=== PATIENT | female | born 1955 | race Caucasian/White ===

== ENCOUNTER → 2016-11-07 | Outpatient (CLI) | payer BC, OTHER ==
--- NOTE | 2016-11-07 14:10 | RADIOLOGY REPORT (SQ) ---
EXAM DESCRIPTION: CHEST PA/LAT COMPLETED DATE/TIME: 11/07/2016 1:51 pm REASON FOR STUDY: FEVER, UNSPECIFIED COMPARISON: None. EXAM PARAMETERS: NUMBER OF VIEWS: two views TECHNIQUE: Digital Frontal and Lateral radiographic views of the chest acquired. RADIATION DOSE: NA LIMITATIONS: none FINDINGS: LUNGS AND PLEURA: There is a 5 cm rounded opacity in the medial right lung base. This nory ears to be posterior on the lateral view. MEDIASTINUM AND HILAR STRUCTURES: No masses or contour abnormalities. HEART AND VASCULAR STRUCTURES: Heart normal size. No evidence for failure. BONES: No acute findings. HARDWARE: None in the chest. OTHER: No other significant finding. IMPRESSION: Right lower lobe opacity. Consolidation versus, more likely, neoplasm. TECHNICAL DOCUMENTATION: JOB ID: [id number] [employer] 100e- All Rights Reserved
== END ==
LOC: RAD 13:38
PROVIDERS: ATTEND Nurse Practitioner Family
DX: R50.9 Fever, unspecified (principal)
CPT/HCPCS: 71020

== ENCOUNTER → 2016-11-09 | Outpatient (CLI) | payer OTHER ==
--- NOTE | 2016-11-09 13:20 | RADIOLOGY REPORT (SQ) ---
EXAM DESCRIPTION: CT CHEST WITH COMPLETED DATE/TIME: 11/09/2016 11:57 am REASON FOR STUDY: ABN CXR R93.8 ABNORMAL FINDINGS ON DIAGNOSTIC IMAGING OF BODY STRUCT COMPARISON: Two-view chest 11/07/2016 TECHNIQUE: CT scan of the chest performed using helical scanning technique with dynamic intravenous contrast injection. Images reviewed with lung, soft tissue and bone windows. Reconstructed coronal and sagittal MPR images reviewed. All images stored on PACS. All CT scanners at this facility use dose modulation, iterative reconstruction, and/or weight based d osing when appropriate to reduce radiation dose to as low as reasonably achievable (ALARA). [facility]: Dose Right [facility]: CareDose [facility]: Dose Right [facility]: Teradose 4D [facility]: Ion Beam Services CONTRAST TYPE AND DOSE: 80mL Isovue 370- low osmolar. RENAL FUNCTION: Creatinine 0.8 RADIATION DOSE: 7.09 mGy. LIMITATIONS: None. FINDINGS: LUNGS AND PLEURA: In the posterior right lower lobe, a 6.3 cm transverse by 5.7 cm AP by 7 cm craniocaudad mass is present, best shown on axial image 78 and coronal image 72. This has a thic k irregular wall, central low attenuation from necrosis, and some adjacent airspace disease in the ri ght posterior costophrenic sulcus. Findings are very worrisome for primary lung tumor with postobstr uctive pneumonia in the posterior right lung base. No right pleural effusion. No other worrisome right or left pulmonary nodules. No pneumothorax. No fluffy alveolar infiltrates worrisome for edema or pneumonia elsewhere. HILAR AND MEDIASTINAL STRUCTURES: A 5.5 cm craniocaudad by 3 cm transverse by 2.4 cm AP mass is prese nt along the right sub- carinal region extending into the inferior right hilum worrisome for adenopat hy. On axial image 23, a 1.6 by 1 cm precarinal lymph node is present HEART AND VASCULAR STRUCTURES: No aneurysm or dissection. No central pulmonary emboli. No pericardi al effusion. 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 HARDWARE: None in the chest. UPPER ABDOMEN: Post gastric sleeve procedure for weight loss, with surgical per along the greater curvature of the stomach. There is postsurgical change at the GE junction likely a Shona fundoplic ation. THYROID AND OTHER SOFT TISSUES: No masses. No adenopathy. BONES: No significant finding. OTHER: Results called to Leola Lazar IMPRESSION: Posterior right lower lobe mass with mediastinal adenopathy worrisome for malignancy. TECHNICAL DOCUMENTATION: JOB ID: [id number] Quality ID # [id number]: Final reports with documentation of one or more dose reduction techniques (e.g., Au tomated exposure control, adjustment of the mA and/or kV according to patient size, use of iterative reconstruction technique) 2010 [employer]- All Rights Reserved
== END ==
LOC: RAD 11:20
PROVIDERS: ATTEND Family Medicine
DX: R93.8 Abnormal findings on diagnostic imaging of other specified body structures (principal)
CPT/HCPCS: 71260; 82565

== ENCOUNTER 2016-11-16 10:13 | Emergency (ER) | payer OTHER ==
--- NOTE | 2016-11-16 10:32 | ER Document Report ---
ED Medical Screen (RME) - General Chief Complaint: Shortness Of Breath Stated Complaint: FEVER,SHORT OF BREATH Time Seen by Provider: 11/16/16 10:26 Mode of Arrival: Ambulatory Information source: Patient Notes: Patient presents to the emergency department for history of pneumonia. She relates that the doctor sent her here requesting for IV antibiotics. No request found. Patient reports she still having a fever, last fever was 101.2 yesterday. No fever today no antipyretic taken. Patient is speaking in a clear voice no shortness of breath. TRAVEL OUTSIDE OF THE [place] IN LAST 30 DAYS: No - Related Data Allergies/Adverse Reactions: No Known Allergies Allergy (Verified 11/16/16 10:16) Past Medical History - Past Medical History Cardiac Medical History: Reports: Hx Hypertension Endocrine Medical History: Reports: Hx Diabetes Mellitus Type 2 Renal/ Medical History: Denies: Hx Peritoneal Dialysis Past Surgical History: Reports: Hx Abdominal Surgery - lap band, Hx Hysterectomy Physical Exam - Vital signs Vitals: Temp Pulse Resp BP Pulse Ox 98.0 F 117 H 17 114/71 97 11/16/16 10:16 11/16/16 10:16 11/16/16 10:16 11/16/16 10:16 11/16/16 10:16 Course - Vital Signs Vital signs: Temp Pulse Resp BP Pulse Ox 98.0 F 117 H 17 114/71 97 11/16/16 10:16 11/16/16 10:16 11/16/16 10:16 11/16/16 10:16 11/16/16 10:16
[2016-11-16 11:24] LABS: ABSOLUTE BASOPHILS # (AUTO) 0.1 10^3/uL (0.0-0.2); ABSOLUTE EOSINOPHILS # (AUTO) 0.3 10^3/uL (0.0-0.6); ABSOLUTE LYMPHOCYTES (AUTO) 1.1 10^3/uL (0.5-4.7); ABSOLUTE MONOCYTES (AUTO) 0.7 10^3/uL (0.1-1.4); ABSOLUTE NEUT (AUTO) 9.4 10^3/uL (1.7-8.2); BASOPHILS % (AUTO) 0.6 % (0-2); EOSINOPHILS % (AUTO) 2.7 % (0-6); HEMATOCRIT 27.8 % (36.0-47.0); HEMOGLOBIN 8.7 g/dL (12.0-15.5); HGB HCT DIFFERENCE -1.7; LYMPHOCYTES % (AUTO) 9.8 % (13-45); MEAN CORPUSCULAR HEMOGLOBIN 25.6 pg (27.0-33.4); MEAN CORPUSCULAR HGB CONC 31.3 g/dL (32.0-36.0); MEAN CORPUSCULAR VOLUME 82 fl (80-97); MONOCYTES % (AUTO) 6.4 % (3-13); RED CELL DISTRIBUTION WIDTH 16.2 % (11.5-14.0); SEGMENTED NEUTROPHILS % (AUTO) 80.5 % (42-78); WHITE BLOOD COUNT 11.7 10^3/uL (4.0-10.5)
[2016-11-16] MEDS ORDERED: LEVOFLOXACIN 500 MG/D5W RTU 100 ML IV ONE (11:26)
--- NOTE | 2016-11-16 11:31 | ER Document Report ---
ED General - General Chief Complaint: Shortness Of Breath Stated Complaint: FEVER,SHORT OF BREATH Time Seen by Provider: 11/16/16 10:26 Mode of Arrival: Ambulatory Information source: Patient Notes: This is a 61-year-old female with a history of hypertension and diabetes who was referred to the ER by her primary care physician (Dr. Madrid) for IV antibiotics Because of the pneumonia. Patient states she started having fevers , nonproductive cough and weakness 2 weeks ago. She states she had a CT scan here 1 week ago which showed "a pneumonia and a mass". Patient was placed on Augmentin and cleared her physician when her symptoms did not improve and she was told to come to the ER. Patient states she still having fevers although she has not had any today. She states she still is weak. She denies any significant shortness of breath. TRAVEL OUTSIDE OF THE [place] IN LAST 30 DAYS: No - HPI Onset: Other - Last month Onset/Duration: Gradual Quality of pain: No pain Severity: None Pain Level: Denies Associated symptoms: Chills, Nonproductive cough, Fever Exacerbated by: Denies Relieved by: Denies Similar symptoms previously: Yes Recently seen / treated by doctor: Yes - Related Data Allergies/Adverse Reactions: No Known Allergies Allergy (Verified 11/16/16 10:16) Past Medical History - General Information source: Patient - Social History Smoking Status: Former Smoker Cigarette use (# per day): Yes - History of smoking 20 years ago Chew tobacco use (# tins/day): No Smoking Education Provided: No Frequency of alcohol use: None Drug Abuse: None Lives with: Alone Family History: None Patient has suicidal ideation: No Patient has homicidal ideation: No - Past Medical History Cardiac Medical History: Reports: Hx Hypertension Endocrine Medical History: Reports: Hx Diabetes Mellitus Type 2 Renal/ Medical History: Denies: Hx Peritoneal Dialysis Past Surgical History: Reports: Hx Abdominal Surgery - lap band, Hx Hysterectomy Review of Systems - Review of Systems Constitutional: Chills, Fever, Weakness EENT: No symptoms reported Cardiovascular: No symptoms reported Respiratory: See HPI Gastrointestinal: No symptoms reported Genitourinary: No symptoms reported Female Genitourinary: No symptoms reported Musculoskeletal: No symptoms reported Skin: No symptoms reported Hematologic/Lymphatic: No symptoms reported Neurological/Psychological: Weakness Physical Exam - Vital signs Vitals: Temp Pulse Resp BP Pulse Ox 98.0 F 117 H 17 114/71 97 11/16/16 10:16 11/16/16 10:16 11/16/16 10:16 11/16/16 10:16 11/16/16 10:16 Notes: GENERAL: A 61-year-old female alert and oriented 3, no acute distress. Patient is afebrile and her oxygen saturation is 97% on room air. HEAD: Atraumatic, normocephalic. EYES: Pupils equal round and reactive to light, extraocular movements intact, sclera anicteric, conjunctiva are normal. ENT: TMs normal, nares patent, oropharynx clear without exudates. Moist mucous membranes. NECK: Normal range of motion, supple without lymphadenopathy or JVD. LUNGS: Breath sounds clear to auscultation bilaterally and equal. No wheezes rales or rhonchi. HEART: Regular rate and rhythm without murmurs, rubs or gallops. ABDOMEN: Soft, normoactive bowel sounds. No tenderness to palpation. No guarding, no rebound. No masses appreciated. EXTREMITIES: Normal range of motion, no pitting or edema. No clubbing or cyanosis. NEUROLOGICAL: Cranial nerves II through XII grossly intact. Normal speech, normal gait. PSYCH: Normal mood, normal affect. SKIN: Warm, Dry, normal turgor, no rashes or lesions noted. Course - Re-evaluation Re-evalutation: 11/16/16 21:19 I reviewed the results of the CAT scan with the patient. She did not realize that she had cancer. I let her know that there were lymph nodes in the mediastinum which were concerning for malignancy. She was told she had a "tumor " but I do not think she had much understanding for this. On physical exam, the patient looks quite good. She is not hypoxic and does not appear to be in respiratory distress. She has been having some fevers and some exertional fatigue which could be from the cancer possibly a pneumonia related to the cancer. In either case, I think she is clinically stable for outpatient follow- up. I discussed case with Dr. Obrien's on-call for oncology. I reviewed the CAT scan with him (we will both able to access the CAT scan and look at the films). The mass looks very amenable to the tissue diagnosis possibly by CT guided biopsy. Dr. Obrien wanted to see the patient in the ER as soon as she is discharged to set it up so that she will go right over to the office upon discharge. Regarding any possible pneumonia, levofloxacin will give a better coverage and I have given her IV dose of levofloxacin in the ER and will discharge her with an oral man for the next 10 days. However clinically I think the patient's symptoms are probably related more to cancer itself. Not had a few conversations with her in order for her to process the information listed above. 1 of the conversations I have had with her, was when her brother and friend were both present at the bedside. They are agreeable to the above plan and they plan on going to Dr. Westbrook office right after discharge - Vital Signs Vital signs: Temp Pulse Resp BP Pulse Ox 98 F 80 16 108/72 99 11/16/16 13:40 11/16/16 13:40 11/16/16 13:40 11/16/16 13:40 11/16/16 13:40 11/16/16 21:19 - Laboratory Result Diagrams: 11/16/16 10:40 11/16/16 10:40 Laboratory results interpreted by me: 11/16/16 11/16/16 10:40 10:40 WBC 11.7 H RBC 3.40 L Hgb 8.7 L Hct 27.8 L MCH 25.6 L MCHC 31.3 L RDW 16.2 H Seg Neutrophils % 80.5 H Lymphocytes % 9.8 L Absolute Neutrophils 9.4 H Potassium 5.4 H Carbon Dioxide 21 L Est GFR (Non-Af Amer) 57 L Glucose 239 H Albumin 3.4 L Discharge - Discharge Clinical Impression: Lung mass Condition: Stable Disposition: HOME, SELF-CARE Additional Instructions: Recommendations: Stop taking the Augmentin. Take levofloxacin daily: Next dose is tomorrow. Go directly to [facility] and oncology: I left the number on the chart: they are expecting you. I have already spoken with Dr. Lamb who is the oncologist and he has already looked at your CAT scan. They are expecting you in the clinic today. Emergency room for shortness of breath, worsening weakness or any concerns or getting worse. Prescriptions: Levofloxacin 500 mg PO DAILY #9 tablet Referrals: JOSE DANIEL OBRIEN MD [ACTIVE STAFF] - 11/16/16 (right after discharge)
[2016-11-16 11:45] LABS: ALANINE AMINOTRANSFERASE 26 U/L (9-52); ALBUMIN 3.4 g/dL (3.5-5.0); ALKALINE PHOSPHATASE 101 U/L (38-126); ANION GAP 15 (5-19); ASPARTATE AMINO TRANSFERASE 30 U/L (14-36); BILIRUBIN,DIRECT 0.4 mg/dL (0.0-0.4); BILIRUBIN,TOTAL 0.4 mg/dL (0.2-1.3); BLOOD UREA NITROGEN 17 mg/dL (7-20); CALCIUM 10.1 mg/dL (8.4-10.2); CARBON DIOXIDE 21 mmol/L (22-30); CHLORIDE 101 mmol/L (98-107); GLUCOSE 239 mg/dL (75-110); POTASSIUM 5.4 mmol/L (3.6-5.0); TOTAL PROTEIN 7.5 g/dL (6.3-8.2)
--- NOTE | 2016-11-16 12:08 | RADIOLOGY REPORT (SQ) ---
EXAM DESCRIPTION: CHEST PA/LAT COMPLETED DATE/TIME: 11/16/2016 11:11 am REASON FOR STUDY: hx pneumonia,fever COMPARISON: 11/07/2016 EXAM PARAMETERS: NUMBER OF VIEWS: two views TECHNIQUE: Digital Frontal and Lateral radiographic views of the chest acquired. RADIATION DOSE: NA LIMITATIONS: none FINDINGS: LUNGS AND PLEURA: There is a 7 cm fairly well-defined area of opacity in the medial corporate legal manager ior right base. There is no improvement in this area since the earlier study. MEDIASTINUM AND HILAR STRUCTURES: No masses or contour abnormalities. HEART AND VASCULAR STRUCTURES: Heart normal size. No evidence for failure. BONES: No acute findings. HARDWARE: None in the chest. OTHER: No other significant finding. IMPRESSION: 7 cm mass in the medial posterior right base. TECHNICAL DOCUMENTATION: JOB ID: [id number] [employer]- All Rights Reserved
[2016-11-16 14:14] VITALS: BP 108/72
== END 2016-11-16 13:40 | disposition home or self-care (01) ==
LOC: ER 10:13
DX: R91.8 Other nonspecific abnormal finding of lung field (principal); R06.02 Shortness of breath; R50.9 Fever, unspecified; R53.1 Weakness; I10 Essential (primary) hypertension; E11.9 Type 2 diabetes mellitus without complications; Z87.891 Personal history of nicotine dependence; Z90.710 Acquired absence of both cervix and uterus
CPT/HCPCS: 99285; 96365; 36415; 87040; 85025; 80053; 71020; J1956

== ENCOUNTER → 2016-11-22 | Outpatient (CLI) | payer OTHER ==
--- NOTE | 2016-11-22 11:14 | RADIOLOGY REPORT (SQ) ---
EXAM DESCRIPTION: MRI HEAD COMBO COMPLETED DATE/TIME: 11/22/2016 10:44 am REASON FOR STUDY: LUNG CA (C34.31) C34.31 MALIGNANT NEOPLASM OF LOWER LOBE, RIGHT BRONCHUS OR L COMPARISON: None. TECHNIQUE: Multiplanar imaging includes noncontrasted T1, T2, FLAIR, Diffusion with ADC map and post gadolinium contrast T1 sequences. Images stored on PACS. CONTRAST TYPE AND DOSE: 15 mL Multihance. RENAL FUNCTION: GFR 57 LIMITATIONS: None. FINDINGS: ANATOMY: No anomalies. Normal vascular flow voids. Pituitary fossa normal. CSF SPACES: Atrophy-induced prominence of CSF spaces and ventricles. CEREBRUM: High-signal intensity lesions scattered throughout the white matter on FLAIR imaging with d istribution suggesting chronic micro-vascular ischemic change. No evidence of hemorrhage, mass, extra axial fluid collection or acute ischemic change. No enhancing lesions. POSTERIOR FOSSA: No signal alteration. No hemorrhage. No edema, masses, or mass effect. Internal joslyn tory canals, cerebello-pontine angles, mastoids normal. No enhancing lesions. ORBITS: No masses. Globes normal. PARANASAL SINUSES: No fluid levels. DIFFUSION: Normal. No evidence of recent infarct. OTHER: No other significant finding. IMPRESSION: No evidence of metastatic disease. TECHNICAL DOCUMENTATION: JOB ID: [id number] [employer]- All Rights Reserved
== END ==
LOC: RAD 08:18
PROVIDERS: ATTEND Internal Medicine
DX: C34.31 Malignant neoplasm of lower lobe, right bronchus or lung (principal)
CPT/HCPCS: 70553; A9577

== ENCOUNTER → 2016-11-24 | Outpatient (CLI) | payer OTHER ==
--- NOTE | 2016-11-27 10:07 | RADIOLOGY REPORT (SQ) ---
EXAM DESCRIPTION: PET CT SKULL/THIGH COMPLETED DATE/TIME: 11/24/2016 2:44 pm REASON FOR STUDY: LUNG CA (C34.31) C34.12 MALIGNANT NEOPLASM OF UPPER LOBE, LEFT BRONCHUS OR HEATH C34 .31 MALIGNANT NEOPLASM OF LOWER LOBE, RIGHT BRONCHUS OR L COMPARISON: CT chest dated 11/09/2016. RADIONUCLIDE AND DOSE: 12.0 mCi F18 FDG The route of agent administration: Intravenous FASTING BLOOD SUGAR: 82 mg/dl CONTRAST TYPE AND DOSE: No CT contrast given. TECHNIQUE: Blood glucose level was verified. Above dose of FDG was injected intravenously. 2-D seg mented attenuation correction images were obtained from the base of the skull to the midthighs. Nonc ontrast CT images were obtained for attenuation correction and fusion with emission images. CT image s were performed without oral or intravenous contrast and are not sensitive for parenchymal lesions. A series of overlapping emission PET images were obtained. Images reviewed and manipulated at indep [employer] work station by the radiologist. Images stored on PACS. LIMITATIONS: None. FINDINGS: HEAD AND NECK: No areas of abnormal metabolic activity in the soft tissues of the head and neck. CHEST: 6.5 cm mass in the right lower lobe with central necrosis. Mean SUV value 9.75. Subcarinal l ymph node measuring 1.6 x 3.6 cm. Mean SUV value 13.22. Precarinal lymph node measuring 1.2 cm. No associated activity on PET imaging. ABDOMEN AND PELVIS: No areas of abnormal metabolic activity in the abdomen or pelvis. Expected physi ologic activity is present in the genitourinary system. There is fairly prominent activity scattered throughout the colon. No definite focal mass on CT images although limited due to lack of oral and intravenous contrast. Activity in the region of the rectum with mean SUV value 6.99. PROXIMAL LOWER EXTREMITIES: No areas of abnormal metabolic activity in the soft tissues of the lower extremities. BONES: No abnormal metabolic activity in the visualized skeleton. ADDITIONAL CT FINDINGS: No additional significant findings on the noncontrast CT images. OTHER: No other significant findings. IMPRESSION: 1. MASS IN THE RIGHT LOWER LOBE DESCRIBED MOST CONSISTENT WITH MALIGNANCY AND CENTRAL NECROSIS. S UBCARINAL LYMPH NODE CONSISTENT WITH METASTASIS. PRECARINAL LYMPH NODE ALSO PRESENT BUT WITH NO ABNO RMAL METABOLIC ACTIVITY. 2. PROMINENT ACTIVITY SCATTERED THROUGHOUT THE COLON AND RECTUM WITH NO DEFINITIVE ABNORMAL FINDINGS ON CT SCAN. PROBABLY DUE TO NORMAL GASTROINTESTINAL PHYSIOLOGIC ACTIVITY. BASED ON CT IMAGING CANNO T COMPLETELY EXCLUDE THE POSSIBILITY OF A COLONIC OR RECTAL LESION. FURTHER EVALUATION WITH COLONOSC OPY OR BARIUM ENEMA MAY BE CONSIDERED TO EXCLUDE UNDERLYING PATHOLOGY. 3. REMAINDER OF THE STUDY IS OTHERWISE UNREMARKABLE. TECHNICAL DOCUMENTATION: JOB ID: [id number] [employer]- All Rights Reserved
== END ==
LOC: RAD 12:25
PROVIDERS: ATTEND Internal Medicine
DX: C34.31 Malignant neoplasm of lower lobe, right bronchus or lung (principal)
CPT/HCPCS: 78815; A9552

== ENCOUNTER → 2016-12-07 | Outpatient (CLI) | payer OTHER | LOC: OD 08:17 | PROVIDERS: ATTEND Internal Medicine | DX: D64.9 Anemia, unspecified (principal) ==

== ENCOUNTER 2016-12-28 09:56 | Day surgery (SDC) | payer OTHER ==
--- NOTE | 2016-12-25 13:06 | EKG REPORT ---
SEVERITY:- BORDERLINE ECG - SINUS RHYTHM BORDERLINE PROLONGED QT INTERVAL : Confirmed by: Mike Thomas MD 25-Dec-2016 13:05:31
[~2016-12-28 09:56] MED LIST: CEFAZOLIN 1 GM/D5W RTU 1 GM/50 ML RTUPB IV PRN; DIAZEPAM 5 MG TABLET PO PRN; LACTATED RINGERS 1000 ML IV PRN; LIDOCAINE 0.5% INJ-PF (5 MG/ML) 50 ML SDV SUBCUT PRN; OXYCODONE-ACETAMINOPHEN 5-325 MG TABLET PO PRN
[2016-12-28] MEDS ORDERED: LIDOCAINE 2% INJ-PF (20 MG/ML) 10 ML AMPUL ONE (10:58)
[2016-12-28] MEDS ORDERED: BUPIVACAINE HCL 0.25 % INJ/PF (2.5 MG/1 ML) 30 ML VIAL ONE (11:11)
[2016-12-28] MEDS ORDERED: LIDOCAINE 0.5% INJ-PF (5 MG/ML) 50 ML SDV ONE (11:12)
[2016-12-28] MEDS ORDERED: BACITRACIN INJ 50,000 UNIT VIAL ONE (11:12)
[2016-12-28] MEDS ORDERED: FENTANYL CITRATE INJ/PF 100 MCG/2 ML AMPUL ONE ×2 (11:43→11:44)
[2016-12-28] MEDS ORDERED: ACETAMINOPHEN 100 ML IV ONE (11:44)
[2016-12-28] MEDS ORDERED: MIDAZOLAM 2 MG/2 ML INJ ONE (11:44)
[2016-12-28] MEDS ORDERED: PROPOFOL INJ 200 MG/20 ML VIAL IV ONE (11:44)
[2016-12-28] MEDS ORDERED: MEPERIDINE HCL/PF INJ 25 MG/1 ML DISP.SYRIN IV PRN ×2 (12:39→12:53)
[2016-12-28] MEDS ORDERED: PROMETHAZINE HCL INJ 25 MG/1 ML VIAL IV PRN ×4 (12:39→12:53)
[2016-12-28] MEDS ORDERED: DIPHENHYDRAMINE HCL 50 MG/ML VIAL IV PRN ×2 (12:39→12:53)
[2016-12-28] MEDS ORDERED: ONDANSETRON HCL INJ/PF 4 MG/2 ML SDV IV PRN (12:39)
[2016-12-28] MEDS ORDERED: MORPHINE SULFATE 10 MG/ML INJ IV PRN ×2 (12:39→12:53)
[2016-12-28] MEDS ORDERED: FENTANYL CITRATE INJ/PF 100 MCG/2 ML AMPUL IV PRN ×6 (12:39→12:53)
[2016-12-28] MEDS ORDERED: OXYCODONE-ACETAMINOPHEN 5-325 MG TABLET PO PRN ×2 (12:53)
--- NOTE | 2016-12-28 12:53 | PDOC DISCHARGE SUMMARY ---
Discharge Summary (SDC) - Discharge Final Diagnosis: #1 squamous cell cancer of lung. 2. Diabetes mellitus. 3. Hypertension. Date of Surgery: 12/28/16 Discharge Date: 12/28/16 Condition: Fair Treatment or Instructions: Discharge home [after recovery per ASU criteria]. Diet,as tolerated, when fully awake advance as tolerated. Activities within moderation encouraged. Follow up in my office by appointment in about [1 week]. Call for appointment. Leave wounds [covered], [keep clean and dry, until office visit in 1 week]. Hold of on school/work [until evaluation in office]. Medications per reconciliation sheet. Percocet for prescription. May shower [in 48 hrs], [try to keep operated area as dry as possible]. Discharge Diet: As Tolerated Respiratory Treatments at Home: Deep Breathing/Coughing Discharge Activity: Activity As Tolerated Report the Following to Your Physician Immediately: Shortness of Breath, Unusual Bleeding
--- NOTE | 2016-12-28 12:56 | Operative Report ---
Operative Report DATE OF SURGERY: 12/28/16 PREOPERATIVE DIAGNOSIS: #1 squamous cell cancer of lung. 2. Diabetes mellitus. 3. Hypertension. POSTOPERATIVE DIAGNOSIS: #1 squamous cell cancer of lung. 2. Diabetes mellitus. 3. Hypertension. OPERATION: 1. Ultrasound evaluation of the right internal jugular vein. 2. Port-A-Cath insertion via real time access under ultrasound guidance of the right internal jugular vein. 3 angiogram and interpretation. SURGEON: ROME PETERSON JAILER/TRAINING OFFICER: None ANESTHESIA: LMAC TISSUE REMOVED OR ALTERED: Not applicable COMPLICATIONS: None ESTIMATED BLOOD LOSS: 5 mL. INTRAOPERATIVE FINDINGS: Of a satisfactory right internal jugular vein, estimated to be 1.2 cm in diameter. Adequate for supporting Port-A-Cath. The position of the port with the catheter tip in the upper right atrium. Easy egress of blood and ingress of heparinized solution. Smooth flow of contrast through the right atrium, ventricle and pulmonary outflow tract, possibly slower than usual. PROCEDURE: After obtaining informed consent, the patient was taken to the [operating room] and positioned supine. The [right] neck and chest were prepared with chlorhexidine and draped out with sterile linen. After the " universal timeout ", in which it was verified that the patient continued to receive antibiotic, the procedure commenced. A steriley sheathed ultrasound probe was used to evaluate the [right] internal jugular vein. Local anesthesia was infiltrated adjacent to the probe. Access into the [right] internal jugular vein was obtained using a micropuncture needle, followed by micropuncture wire and then a micropuncture catheter. This was followed by introduction of a 0.035 guidewire the tip of which was placed down into the inferior vena cava . The port sites was marked , locally anesthetized and incision made. Dissection now proceeded to the deep subcutaneous subcutaneous tissues so that a pocket for the port was made. Meticulous hemostasis was secured and the catheter was tunneled between the 2 incisions. Proximally, the catheter was now positioned using a peel-away sheath. Distally the catheter was tailored to an appropriate length and then mated to the port using the contained fixating device. The port was now placed in the pocket and the catheter optimally positioned. The port was accessed with a Yañez needle and an angiogram done under digital subtraction. The findings as dictated. With adequate and satisfactory positioning, both lumens of the chamber were irrigated with heparinized solution. The wounds were now closed using interrupted 3-0 PDS to the subcutaneous tissues and a continuous subcuticular suture of 4-0 Monocryl to the skin. These are reinforced with Steri-Strips over benzoin and then dressings applied. Time: 0.7 minute. Dose: 9.79 m Gy Contrast: 10 mls. Isovue 300. Copies of the dictated operative report for Dr. Rome Arreguin MD.
--- NOTE | 2016-12-28 15:03 | RADIOLOGY REPORT (SQ) ---
EXAM DESCRIPTION: FLUORO/CV PLACEMENT COMPLETED DATE/TIME: 12/28/2016 1:26 pm REASON FOR STUDY: PORTACATH PLCMT RT SIDE ASSISTED WITH FLUORO IN OR C34.31 MALIGNANT NEOPLASM OF L OWER LOBE, RIGHT BRONCHUS OR L COMPARISON: Two-view chest 11/16/2016 FLUOROSCOPY TIME: 0.7 minutes 5 digital radiographic images saved to PACS. TECHNIQUE: Intra-operative images acquired during surgical procedure to evaluate progress. NUMBER OF IMAGES: 5 digital radiographic images LIMITATIONS: None. FINDINGS: Intra procedural imaging and fluoro during permanent central venous catheter placement by Dr. Arreguin. Please see the operative report for further details IMPRESSION: Intra procedural imaging and fluoro COMMENT: Quality ID [id number]: Final reports for procedures using fluoroscopy that document radiation exp osure indices, or exposure time and number of fluorographic images (if radiation exposure indices are not available) Please consult full operative report of the attending physician for description of the procedure. TECHNICAL DOCUMENTATION: JOB ID: [id number] [employer]- All Rights Reserved
[2016-12-28 15:06] VITALS: BP 104/72
== END 2016-12-28 14:45 | disposition home or self-care (01) ==
LOC: OROUT 09:56
PROVIDERS: ATTEND Surgery
PROC: 05HM33Z Insertion of Infusion Device into Right Internal Jugular Vein, Percutaneous Approach (ICD-10-PCS; principal; 2016-12-28 12:00)
DX: C34.31 Malignant neoplasm of lower lobe, right bronchus or lung (principal); E11.9 Type 2 diabetes mellitus without complications; I10 Essential (primary) hypertension; M19.90 Unspecified osteoarthritis, unspecified site; D64.9 Anemia, unspecified; Z87.891 Personal history of nicotine dependence; Z79.899 Other long term (current) drug therapy; Z79.84 Long term (current) use of oral hypoglycemic drugs
CPT/HCPCS: 36561; 93005; 82962; 77001; 93010; C1752; C1788; Q9967; J2250; J3490 ×3; J0690; J3010; J2704; J1642; J0131; 532

== ENCOUNTER → 2017-02-20 | Outpatient (CLI) | payer OTHER ==
--- NOTE | 2017-02-20 16:23 | RADIOLOGY REPORT (SQ) ---
EXAM DESCRIPTION: CHEST PA/LAT COMPLETED DATE/TIME: 02/20/2017 3:32 pm REASON FOR STUDY: SHORTNESS OF BREATH COMPARISON: 11/16/2016 EXAM PARAMETERS: NUMBER OF VIEWS: two views TECHNIQUE: Digital Frontal and Lateral radiographic views of the chest acquired. RADIATION DOSE: NA LIMITATIONS: none FINDINGS: LUNGS AND PLEURA: There is persistent but improved opacifications in the posterior medial aspect of the right lower lung. There is less the appearance of a mass on the current study. MEDIASTINUM AND HILAR STRUCTURES: No masses or contour abnormalities. HEART AND VASCULAR STRUCTURES: Heart normal size. No evidence for failure. BONES: No acute findings. HARDWARE: Injection port on the right. OTHER: No other significant finding. IMPRESSION: Improving appearance of the medial aspect of the right lower lobe posteriorly. The appe arance suggests improving consolidation. Additional follow-up is recommended after treatment. TECHNICAL DOCUMENTATION: JOB ID: [id number] [employer]- All Rights Reserved
== END ==
LOC: RAD 15:15
PROVIDERS: ATTEND Internal Medicine
DX: R06.02 Shortness of breath (principal)
CPT/HCPCS: 71020

== ENCOUNTER → 2017-02-27 | Outpatient (CLI) | payer OTHER ==
--- NOTE | 2017-02-27 14:42 | RADIOLOGY REPORT (SQ) ---
EXAM DESCRIPTION: T SPINE AP/LAT COMPLETED DATE/TIME: 02/27/2017 2:03 pm REASON FOR STUDY: PAIN COMPARISON: Lumbar spine plain films same date PET-CT 11/24/2016 CT chest 11/09/2016 NUMBER OF VIEWS: Two views. TECHNIQUE: AP and lateral radiographic images acquired of the thoracic spine. LIMITATIONS: None. FINDINGS: MINERALIZATION: Osteoporotic ALIGNMENT: Normal. No scoliosis. VERTEBRAE: No fracture or bone lesion. Maintained height, normal segmentation. DISCS: Very mild disc space loss of height and anterior osteophyte formation from T8-9 through T12-L1 . HARDWARE: None in the spine. Left upper quadrant surgical clips question prior Shona fundoplication . Right permanent central line tip superior vena cava MEDIASTINUM AND SOFT TISSUES: Normal heart size and aortic contour. No soft tissue abnormality. VISUALIZED LUNG RUDD: Clear. OTHER: No other significant finding. IMPRESSION: Osteoporotic. No gross acute fracture. Bone scan may be useful for followup there is a history of trauma TECHNICAL DOCUMENTATION: JOB ID: [id number] [employer]- All Rights Reserved
--- NOTE | 2017-02-27 14:44 | RADIOLOGY REPORT (SQ) ---
EXAM DESCRIPTION: L SPINE WHOLE COMPLETED DATE/TIME: 02/27/2017 2:03 pm REASON FOR STUDY: PAIN COMPARISON: None. NUMBER OF VIEWS: Five views including obliques. TECHNIQUE: AP, lateral, oblique, and sacral radiographic images acquired of the lumbar spine. LIMITATIONS: None. FINDINGS: MINERALIZATION: Osteoporotic SEGMENTATION: Small disc space between the S1 and S2 levels. ALIGNMENT: Normal. VERTEBRAE: Maintained height. No fracture or worrisome bone lesion. DISCS: Disc space loss of height with vertebral body endplate sclerosis at T10-11, T11-12, T12-L1. D isc space loss of height at L3-4 and L5-S1 POSTERIOR ELEMENTS: Facet arthropathy throughout the lumbar spine most pronounced at L4-5 and L5-S1 HARDWARE: Left upper quadrant surgical clips along the stomach PARASPINAL SOFT TISSUES: Normal. PELVIS: Incompletely included in the field of view OTHER: No other significant finding. IMPRESSION: No acute fracture or malalignment. If there is a history of trauma and back pain, consi jeremie bone scan for followup TECHNICAL DOCUMENTATION: JOB ID: [id number] [email or web address]- All Rights Reserved
--- NOTE | 2017-02-27 14:47 | RADIOLOGY REPORT (SQ) ---
EXAM DESCRIPTION: PELVIS AP COMPLETED DATE/TIME: 02/27/2017 2:03 pm REASON FOR STUDY: PAIN COMPARISON: None. NUMBER OF VIEWS: One view TECHNIQUE: AP Pelvis LIMITATIONS: None. FINDINGS: MINERALIZATION: Osteoporotic HIPS: No acute fracture or dislocation. No worrisome bone lesions. PELVIS AND SACRUM: No acute fracture or dislocation. No worrisome bone lesions. PUBIS AND ISCHIUM: No acute fracture. LOWER LUMBAR SPINE: Lower lumbar disc space narrowing and facet arthropathy SOFT TISSUES: No findings. OTHER: No other significant finding. IMPRESSION: No acute fracture. If there is a history of trauma and pain, consider bone scan for [facility] TECHNICAL DOCUMENTATION: JOB ID: [id number] [employer]- All Rights Reserved
--- NOTE | 2017-02-27 16:04 | RADIOLOGY REPORT (SQ) ---
EXAM DESCRIPTION: CTA CHEST COMPLETED DATE/TIME: 02/27/2017 3:41 pm REASON FOR STUDY: SHORTNESS OF BREATH COMPARISON: Or 11/09/2016 TECHNIQUE: CT scan of the chest performed using helical scanning technique with dynamic intravenous contrast injection. Images reviewed with lung, soft tissue and bone windows. Reconstructed coronal and sagittal MPR images reviewed. Additional 3 dimensional post-processing performed to develop Maximal Intensity Projection images (FL P). All images stored on PACS. All CT scanners at this facility use dose modulation, iterative reconstruction, and/or weight based d osing when appropriate to reduce radiation dose to as low as reasonably achievable (ALARA). [facility]: Dose Right [facility]: CareDose [facility]: Dose Right [facility]: Teradose 4D [facility]: [employer] CONTRAST TYPE AND DOSE: contrast/concentration: Isovue 370.00 mg/ml; Total Contrast Delivered: 59.0 ml; Total Saline Delivered: 104.0 ml Contrast bolus optimized for the pulmonary arteries. Not diagnostic for the aorta. RENAL FUNCTION: BUN 13 creatinine 0.6 RADIATION DOSE: Up-to-date CT equipment and radiation dose reduction techniques were employed. CTDIv ol: 7.2 - 11.3 mGy. DLP: 240 mGy-cm. . LIMITATIONS: None. FINDINGS: LUNGS AND PLEURA: Previously described right lower lobe mass has been essentially replaced by segmental consolidation surrounding approximately 2 cm cavitary lesion right lower lobe. There is a right pleural effusion volume estimated 500 cc. No endobronchial lesion identified. Left lung is clear. AORTA AND GREAT VESSELS: No aneurysm. Contrast bolus not optimized for the aorta. HEART: No pericardial effusion. No significant coronary artery calcifications. PULMONARY ARTERIES: No emboli visualized in the main pulmonary arteries or the segmental branches. HILAR AND MEDIASTINAL STRUCTURES: No identified masses or abnormal nodes. HARDWARE: None in the chest. UPPER ABDOMEN: Gastric bypass. THYROID AND OTHER SOFT TISSUES: No masses. No adenopathy. BONES: No acute or significant finding. 3D MIPS: Confirm above findings. OTHER: No other significant finding. IMPRESSION: 1. No PE. 2. Right pleural effusion. Cavitary airspace disease right lower lobe. COMMENT: Quality ID # [id number]: Final reports with documentation of one or more dose reduction techniques (e.g., Automated exposure control, adjustment of the mA and/or kV according to patient size, use of iterative reconstruction technique) TECHNICAL DOCUMENTATION: JOB ID: [id number] [employer]- All Rights Reserved
== END ==
LOC: RAD 13:35
PROVIDERS: ATTEND Internal Medicine
DX: R07.9 Chest pain, unspecified (principal); R06.02 Shortness of breath; J90 Pleural effusion, not elsewhere classified
CPT/HCPCS: 71275; 72070; 72110; 72170

== ENCOUNTER → 2017-03-06 | Outpatient (CLI) | payer OTHER ==
--- NOTE | 2017-03-06 09:02 | WOMENS IMAGING REPORT ---
EXAM DESCRIPTION: BONE DENSITY HIP/SPINE COMPLETED DATE/TIME: 03/06/2017 8:23 am REASON FOR STUDY: AGE-RELATED OSTEOPOROSIS; M81.0 M81.0 AGE-RELATED OSTEOPOROSIS W/O CURRENT PATHOL OGICAL FRAC COMPARISON: None. TECHNIQUE: Dual-Energy X-ray Absorptiometry (DEXA) of the AP Spine and Hip. LIMITATIONS: None. FINDINGS: LUMBAR SPINE: The bone mineral density (BMD) measured from L1-L4 in the AP projection correlates with a T-score of -0.4, which is normal as defined by the World Health Organization. HIP: The bone mineral density (BMD) measured in the left hip correlates with a T-score of 0.0, which is no rmal as defined by the World Health Organization. IMPRESSION: 1. LUMBAR SPINE: NORMAL. 2. HIP: NORMAL. COMMENT: The World Health Organization defines low BMD as follows: T-score: Normal: Greater than -1.0 Osteopenia: Between -1.0 and -2.5 Osteoporosis: Less than -2.5 without fractures Established osteoporosis: Less than -2.5 with fractures In general, you may wish to consider: Diagnosis Treatment Follow-up DEXA Normal BMD Prevention 2-3 years Osteopenia Prevention/Therapy 1-2 years Osteoporosis Therapy Yearly TECHNICAL DOCUMENTATION: JOB ID: [id number]- All Rights Reserved
== END ==
LOC: WI 08:09
PROVIDERS: ATTEND Internal Medicine
DX: M81.0 Age-related osteoporosis without current pathological fracture (principal)
CPT/HCPCS: 77080

== ENCOUNTER 2017-03-07 11:03 | Day surgery (SDC) | payer OTHER ==
[2017-03-07 11:55] LABS: HEMATOCRIT 26.9 % (36.0-47.0); HGB HCT DIFFERENCE 0.1; MEAN CORPUSCULAR HEMOGLOBIN 30.3 pg (27.0-33.4); MEAN CORPUSCULAR HGB CONC 33.3 g/dL (32.0-36.0); MEAN CORPUSCULAR VOLUME 91 fl (80-97); RED BLOOD COUNT 2.96 10^6/uL (3.72-5.28); RED CELL DISTRIBUTION WIDTH 18.2 % (11.5-14.0); WHITE BLOOD COUNT 8.2 10^3/uL (4.0-10.5)
[2017-03-07 12:00] LABS: PROTHROMBIN TIME 15.3 SEC (11.4-15.4)
[2017-03-07 12:01] LABS: PARTIAL THROMBOPLASTIN TIME 55.1 SEC (23.5-35.8)
[2017-03-07 12:08] LABS: BLOOD UREA NITROGEN 11 mg/dL (7-20); CREATININE RESULT 0.59 mg/dL (0.52-1.25)
[2017-03-07 15:04] LABS: FLUID APPEARANCE CLOUDY; FLUID TYPE PLEURAL
[2017-03-07 15:05] LABS: FLUID RBC AVERAGE 246.5; FLUID RBC SIDE 1 252; FLUID RBC SIDE 2 241
[2017-03-07 15:06] LABS: FLUID RBC DILUENT USED SALINE; FLUID RBC DILUTION FACTOR 10; TOTAL RBC SQUARES COUNTED FLD 25
--- NOTE | 2017-03-07 15:28 | RADIOLOGY REPORT (SQ) ---
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 PROCEDURE: Procedure, risks, benefit, and alternative explained to patient who then gave written con sent. The posterior right chest wall was marked using ultrasound guidance. A time-out was called fo r correct marking verification. Chest prepped and draped using sterile technique. Local anesthesia a chieved using 5 ml of 1% lidocaine injection. A 5fr needle/catheter set was introduced into the post erior right pleural space. Fluid was aspirated. The catheter was removed and the entry site was cov ered with sterile bandage. No immediate complications noted. Images acquired during the procedure were stored on PACS. FINDINGS: ENTRY SITE: Posterior right pleural space FLUID VOLUME: 10 mL of serosanguineous fluid FLUID ANALYSIS: Sent for culture, cell count, LDH. Specimen was too small to send for cytology OTHER: No immediate postprocedure complication IMPRESSION: SUCCESSFUL THORACENTESIS USING ULTRASOUND GUIDANCE. COMMENT: Patient medication list reviewed: Yes- Quality ID# 130:Eligible professional attests to doc umenting in the medical record they obtained, updated, or reviewed the patient's current medications. Quality ID #145: Final reports for procedures using fluoroscopy that document radiation exposure alannah rubin, or exposure time and number of fluorographic images (if radiation exposure indices are not avail able) TECHNICAL DOCUMENTATION: JOB ID: [id number] [employer]- All Rights Reserved
--- NOTE | 2017-03-07 15:48 | RADIOLOGY REPORT (SQ) ---
EXAM DESCRIPTION: CHEST SINGLE VIEW COMPLETED DATE/TIME: 03/07/2017 3:08 pm REASON FOR STUDY: S/P RT THORACENTESIS COMPARISON: Two-view chest 02/20/2017 CT angio chest 02/27/2017 Thoracentesis earlier today EXAM PARAMETERS: NUMBER OF VIEWS: One view. TECHNIQUE: Single frontal radiographic view of the chest acquired. RADIATION DOSE: NA LIMITATIONS: None. FINDINGS: LUNGS AND PLEURA: No pneumothorax post right thoracentesis. There is persistent airspace disease in the medial right posterior lung base, similar compared to 02/20. No residual right pleural effusion. Left hemithorax unremarkable. MEDIASTINUM AND HILAR STRUCTURES: No masses. Contour normal. HEART AND VASCULAR STRUCTURES: Heart normal in size. Normal vasculature. BONES: No acute findings. HARDWARE: Right jugular central line tip superior vena cava. OTHER: No other significant finding. IMPRESSION: No pneumothorax post right thoracentesis. TECHNICAL DOCUMENTATION: JOB ID: [id number]
--- NOTE | 2017-03-07 16:44 | RADIOLOGY REPORT (SQ) ---
EXAM DESCRIPTION: CHEST SINGLE VIEW COMPLETED DATE/TIME: 03/07/2017 4:34 pm REASON FOR STUDY: 2 HOURS S/P RT THORACENTESIS COMPARISON: 03/15/2017, 1420 hours EXAM PARAMETERS: NUMBER OF VIEWS: One view. TECHNIQUE: Single frontal radiographic view of the chest acquired. RADIATION DOSE: NA LIMITATIONS: None. FINDINGS: LUNGS AND PLEURA: No pneumothorax 2 hours post right thoracentesis. Persistent mild right basilar airspace disease. No pleural effusion. Left lung clear. MEDIASTINUM AND HILAR STRUCTURES: No masses. Contour normal. HEART AND VASCULAR STRUCTURES: Heart normal in size. Normal vasculature. BONES: No acute findings. HARDWARE: Right-sided jugular central line tip superior vena cava OTHER: No other significant finding. IMPRESSION: No pneumothorax 2 hours post right-sided thoracentesis TECHNICAL DOCUMENTATION: JOB ID: [id number]
[2017-03-07 16:57] VITALS: BP 139/86
== END 2017-03-07 17:00 | disposition home or self-care (01) ==
LOC: RAD 11:03
PROVIDERS: ATTEND Internal Medicine
PROC: 0W993ZZ Drainage of Right Pleural Cavity, Percutaneous Approach (ICD-10-PCS; principal; 2017-03-07)
DX: J91.0 Malignant pleural effusion (principal); C34.31 Malignant neoplasm of lower lobe, right bronchus or lung
CPT/HCPCS: 32555; 36415; 71010; 82565; 82962; 83615; 84520; 85027; 85610; 85730; 87070; 87075; 87205; 88305; 89050

== ENCOUNTER → 2017-06-05 | Outpatient (CLI) | payer OTHER ==
--- NOTE | 2017-06-05 09:32 | RADIOLOGY REPORT (SQ) ---
EXAM DESCRIPTION: CT CHEST WITH; CT ABD/PELVIS WITH IV ONLY COMPLETED DATE/TIME: 06/05/2017 8:34 am REASON FOR STUDY: LUNG CA C34.31 MALIGNANT NEOPLASM OF LOWER LOBE, RIGHT BRONCHUS OR L COMPARISON: CT angio chest 02/27/2017 PET-CT 11/24/2016 CT chest 11/09/2016 CT abdomen pelvis 02/22/2012 TECHNIQUE: CT scan of the chest performed using helical scanning technique with dynamic intravenous contrast injection. Images reviewed with lung, soft tissue and bone windows. Reconstructed coronal and sagittal MPR images reviewed. All images stored on PACS. All CT scanners at this facility use dose modulation, iterative reconstruction, and/or weight based d osing when appropriate to reduce radiation dose to as low as reasonably achievable (ALARA). [facility]: Dose Right [facility]: CareDose [facility]: Dose Right [facility]: Teradose 4D [facility]: [place] [employer] CONTRAST TYPE AND DOSE: contrast/concentration: Isovue 370.00 mg/ml; Total Contrast Delivered: 66.0 ml; Total Saline Delivered: 65.0 ml RENAL FUNCTION: Creatinine 0.7 RADIATION DOSE: CT Rad equipment meets quality standard of care and radiation dose reduction techniq ues were employed. CTDIvol: 4.5 - 6.3 mGy. DLP: 810 mGy-cm. . LIMITATIONS: None. FINDINGS: LUNGS AND PLEURA: There is dense consolidation in the right lower lobe posteriorly on axia l image 74, measuring about 3 cm in greatest diameter. This is the area of prior discrete mass seen on 11/24/2016. On today's study, there are air bronchograms in this area and a discrete mass is diffic ult to measure. There is trace right pleural fluid or pleural thickening. Left hemithorax unremarkable. Airways are widely patent. No pneumothorax. HILAR AND MEDIASTINAL STRUCTURES: There is a sub- carinal lymph node 1.4 x 1 cm on today's study (was 2.8 x 2.2 cm on PET-CT 11/24/2016). Aberrant right subclavian artery, an anatomic variant HEART AND VASCULAR STRUCTURES: No aneurysm or dissection. No central pulmonary emboli. No pericardi al effusion. HARDWARE: Right-sided permanent central line tip superior vena cava. Gastric sleeve has been perform ed with multiple surgical per along the greater curvature of the stomach UPPER ABDOMEN: As above. THYROID AND OTHER SOFT TISSUES: No masses. No adenopathy. BONES: No significant finding. OTHER: No other significant finding. IMPRESSION: Decrease in size of sub- carinal lymph nodes compared to PET-CT 11/24/2016 Discrete mass in the right lower lobe is no longer seen. In area wedge shaped consolidation with air bronchograms is present on today's study, about 3 cm in diameter TECHNICAL DOCUMENTATION: JOB ID: [id number] Quality ID # 436: Final reports with documentation of one or more dose reduction techniques (e.g., Au tomated exposure control, adjustment of the mA and/or kV according to patient size, use of iterative reconstruction technique) 2010 [employer]- All Rights Reserved
== END ==
LOC: RAD 08:04
PROVIDERS: ATTEND Internal Medicine
DX: C34.31 Malignant neoplasm of lower lobe, right bronchus or lung (principal)
CPT/HCPCS: 71260; 74177; 82565

== ENCOUNTER → 2017-09-03 | Outpatient (CLI) | payer OTHER ==
--- NOTE | 2017-09-03 11:37 | RADIOLOGY REPORT (SQ) ---
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 Images reviewed with lung, soft tissue and bone windows. Reconstructed coronal and sagittal MPR images reviewed. All images stored on PACS. All CT scanners at this facility use dose modulation, iterative reconstruction, and/or weight based d osing when appropriate to reduce radiation dose to as low as reasonably achievable (ALARA). [facility]: Dose Right [facility]: CareDose [facility]: Dose Right [facility]: Teradose 4D [facility]: [employer] CONTRAST TYPE AND DOSE: 67 cc Isovue 370 RENAL FUNCTION: Creatinine 0.9 RADIATION DOSE: Total exam DLP: 527.62. LIMITATIONS: None. FINDINGS: LUNGS AND PLEURA: Continued interval decrease in size of the mass-like consolidation with associated air bronchograms, extending to the pleural surface in the right lower lobe, since the logan or study dated 06/05/2017. On the prior examination, it measured approximately 3.0 cm in diameter, c ompared to approximately 2.6 cm on the current study. The left lung is stable in appearance. The sma ll right pleural effusion has decreased in size. No pneumothorax. HILAR AND MEDIASTINAL STRUCTURES: Stable appearing mildly prominent subcarinal lymph nodes. HEART AND VASCULAR STRUCTURES: Aberrant right subclavian artery, normal anatomic variant. No aneury sm or dissection. No central pulmonary emboli. No pericardial effusion. HARDWARE: Right Meecuh-W-Buza catheter, unchanged finding. UPPER ABDOMEN: No significant findings. Limited exam. THYROID AND OTHER SOFT TISSUES: No masses. No adenopathy. BONES: The osseous structures are stable in appearance. OTHER: No other significant finding. IMPRESSION: 1 Since the prior examination dated 06/05/2017, continued interval decrease in size of t he right lower lobe mass-like consolidation. 2. No significant interval change in the appearance of the mildly prominent sub-carinal lymph nodes. TECHNICAL DOCUMENTATION: JOB ID: [id number] Quality ID # 436: Final reports with documentation of one or more dose reduction techniques (e.g., Au tomated exposure control, adjustment of the mA and/or kV according to patient size, use of iterative reconstruction technique) 2010 [employer]- All Rights Reserved Reading location - IP/workstation name: [email or web address]
--- NOTE | 2017-09-03 15:05 | RADIOLOGY REPORT (SQ) ---
EXAM DESCRIPTION: CT ABDOMEN IV CONTRAST ONLY COMPLETED DATE/TIME: 09/03/2017 11:07 am REASON FOR STUDY: MAL FERMIN PF LOWER LOBE, RIGHT BRONCHUS OR LUNG C34.31 MALIGNANT NEOPLASM OF LOWER LOBE, RIGHT BRONCHUS OR L COMPARISON: 06/05/2017 TECHNIQUE: CT scan of the abdomen performed with intravenous and without oral contrast using helical scanning technique with dynamic intravenous contrast injection. Images reviewed with lung, soft tiss ue, and bone windows. Reconstructed coronal and sagittal MPR images reviewed. Delayed images for eval uation of the urinary system also acquired and evaluated. All images stored on PACS. All CT scanners at this facility use dose modulation, iterative reconstruc tion, and/or weight based dosing when appropriate to reduce radiation dose to as low as reasonably ac hievable (ALARA). [facility]: Dose Right [facility]: CareDose [facility]: Dose Right [facility]: Teradose 4D [facility]: [employer] CONTRAST TYPE AND DOSE: contrast/concentration: Isovue 370.00 mg/ml; Total Contrast Delivered: 67.0 ml; Total Saline Delivered: 65.0 ml RENAL FUNCTION: Creatinine-- 0.9 RADIATION DOSE: CT Rad equipment meets quality standard of care and radiation dose reduction [employer] ues were employed. CTDIvol: 4.4 - 5.7 mGy. DLP: 528 mGy-cm. . LIMITATIONS: None. FINDINGS: LOWER CHEST: Please see CT chest report. LIVER: Normal size. No masses. No dilated ducts. The hepatic and portal veins are patent. SPLEEN: Normal size. No focal lesions. PANCREAS: The pancreas is atrophic in appearance, stable finding. No masses. No significant calcifi cations. No adjacent inflammation or peripancreatic fluid collections. Pancreatic duct not dilated. GALLBLADDER: No identified stones by CT criteria. No inflammatory changes to suggest cholecystitis. ADRENAL GLANDS: No significant masses or asymmetry. RIGHT KIDNEY AND URETER: No solid masses. No significant calcifications. No hydronephrosis or hyd roureter. LEFT KIDNEY AND URETER: No solid masses. No significant calcifications. No hydronephrosis or hydr oureter. AORTA AND VESSELS: Atherosclerotic changes involving the abdominal aorta. No aneurysm. No dissectio n. Renal arteries, SMA, celiac without stenosis. RETROPERITONEUM: No retroperitoneal adenopathy, hemorrhage or masses. BOWEL AND PERITONEAL CAVITY: Prior gastric bypass procedure. No masses or inflammatory changes. No free fluid or peritoneal masses. APPENDIX: Not visualized. Normal. ABDOMINAL WALL: Small fat containing umbilical hernia. BONES: The osseous structures are stable in appearance. OTHER: No other significant finding. IMPRESSION: 1 No significant interval changes since the prior examination dated 06/05/2017. TECHNICAL DOCUMENTATION: JOB ID: [id number] Quality ID # 436: Final reports with documentation of one or more dose reduction techniques (e.g., Au tomated exposure control, adjustment of the mA and/or kV according to patient size, use of iterative reconstruction technique) 2010 [employer]- All Rights Reserved Reading location - IP/workstation name: [email or web address]
== END ==
LOC: RAD 10:12
PROVIDERS: ATTEND Internal Medicine
DX: C34.31 Malignant neoplasm of lower lobe, right bronchus or lung (principal)
CPT/HCPCS: 71260; 74160; 82565

== ENCOUNTER → 2017-10-04 | Outpatient (CLI) | payer OTHER ==
--- NOTE | 2017-10-04 14:00 | RADIOLOGY REPORT (SQ) ---
EXAM DESCRIPTION: CHEST 2 VIEWS COMPLETED DATE/TIME: 10/04/2017 11:32 am REASON FOR STUDY: COUGH COMPARISON: Chest x-ray dated 02/20/2017. Chest CT days seen. EXAM PARAMETERS: NUMBER OF VIEWS: two views TECHNIQUE: Digital Frontal and Lateral radiographic views of the chest acquired. RADIATION DOSE: NA LIMITATIONS: none FINDINGS: LUNGS AND PLEURA: Persistent streaky density in the right lung base similar to previous ch est x-ray and CT. Left lung clear. MEDIASTINUM AND HILAR STRUCTURES: No masses or contour abnormalities. HEART AND VASCULAR STRUCTURES: Heart normal size. No evidence for failure. BONES: No acute findings. HARDWARE: Vascular access port. OTHER: No other significant finding. IMPRESSION: NO CHANGE IN APPEARANCE OF THE CHEST. PERSISTENT STREAKY DENSITY IN THE RIGHT LUNG BASE . TECHNICAL DOCUMENTATION: JOB ID: [id number] [employer]- All Rights Reserved Reading location - IP/workstation name: [email or web address]
--- NOTE | 2017-10-04 14:05 | RADIOLOGY REPORT (SQ) ---
EXAM DESCRIPTION: T SPINE AP/LAT COMPLETED DATE/TIME: 10/04/2017 11:32 am REASON FOR STUDY: ACUTE MIDLINE BACK PAIN R05 COUGH M54.6 PAIN IN THORACIC SPINE COMPARISON: CT chest dated 09/03/2017 and 06/05/2017. NUMBER OF VIEWS: Two views. TECHNIQUE: AP and lateral radiographic images acquired of the thoracic spine. LIMITATIONS: None. FINDINGS: MINERALIZATION: Normal. ALIGNMENT: Normal. No scoliosis. VERTEBRAE: Mild wedge deformity involving the superior endplate of T 6. Remainder of the thoracic ve rtebrae are intact. DISCS: Mild disc space narrowing with osteophytes. HARDWARE: None in the spine. MEDIASTINUM AND SOFT TISSUES: Normal heart size and aortic contour. No soft tissue abnormality. VISUALIZED LUNG RUDD: Clear. OTHER: No other significant finding. IMPRESSION: DEGENERATIVE CHANGES. MILD WEDGE DEFORMITY OF THE SUPERIOR ENDPLATE OF T6. THIS WAS AL SO PRESENT ON PRIOR CT DATED 09/03/2017 BUT NOT PRESENT IN MAY 2017. NO OTHER SIGNIFICANT FINDIN GS. TECHNICAL DOCUMENTATION: JOB ID: [id number] [employer]- All Rights Reserved Reading location - IP/workstation name: [email or web address]
== END ==
LOC: RAD 11:01
PROVIDERS: ATTEND Family Medicine
DX: M54.6 Pain in thoracic spine (principal); R05 Cough
CPT/HCPCS: 71046; 72070

== ENCOUNTER → 2017-12-07 | Outpatient (CLI) | payer OTHER ==
[2017-12-08 16:38] LABS: ANTICHROMATIN AB <0.2 AI (0.0-0.9); CENTROMERE B AB <0.2 AI (0.0-0.9); JO-1 ANTIBODY (ANACOMP) <0.2 AI (0.0-0.9); RNP AB <0.2 AI (0.0-0.9); SCLERODERMA-70 ANTIBODIES <0.2 AI (0.0-0.9); SJOGREN'S ANTI-SS-B AB <0.2 AI (0.0-0.9); SJOGREN'S SS-A ANTIBODY <0.2 AI (0.0-0.9); SMITH AB ANA <0.2 AI (0.0-0.9)
[2017-12-09 07:06] LABS: DNA DOUBLE STRAND ANTIBODY ANA 3 IU/mL (0-9)
[2017-12-11 18:37] LABS: CYTOPLASMIC (C-ANCA) <1:20 titer (Neg:<1:20)
[2017-12-12 07:47] LABS: ATYPICAL PANCA <1:20 titer (Neg:<1:20); PERINUCLEAR (P-ANCA) <1:20 titer (Neg:<1:20)
== END ==
LOC: LAB 09:43
PROVIDERS: ATTEND Physician Assistant
DX: R06.00 Dyspnea, unspecified (principal)
CPT/HCPCS: 36415; 86021; 86225; 86235; 86430

== ENCOUNTER → 2017-12-07 | Outpatient (CLI) | payer OTHER ==
--- NOTE | 2017-12-07 11:43 | RADIOLOGY REPORT (SQ) ---
EXAM DESCRIPTION: CT CHEST WITH COMPLETED DATE/TIME: 12/07/2017 9:38 am REASON FOR STUDY: LUNG CA (C34.11) C34.11 MALIGNANT NEOPLASM OF UPPER LOBE, RIGHT BRONCHUS OR L COMPARISON: PET-CT 11/24/2016 CT chest 02/27/2017, 06/05/2017, 09/03/2017 TECHNIQUE: CT scan of the chest performed using helical scanning technique with dynamic intravenous contrast injection. Images reviewed with lung, soft tissue and bone windows. Reconstructed coronal and sagittal MPR images reviewed. All images stored on PACS. All CT scanners at this facility use dose modulation, iterative reconstruction, and/or weight based d osing when appropriate to reduce radiation dose to as low as reasonably achievable (ALARA). [facility]: Dose Right [facility]: CareDose [facility]: Dose Right [facility]: Teradose 4D [facility]: [employer] CONTRAST TYPE AND DOSE: contrast/concentration: Isovue 370.00 mg/ml; Total Contrast Delivered: 80.0 ml; Total Saline Delivered: 55.0 ml RENAL FUNCTION: Creatinine 0.8 RADIATION DOSE: CT Rad equipment meets quality standard of care and radiation dose reduction techniq ues were employed. CTDIvol: 5.3 mGy. DLP: 186 mGy-cm. . LIMITATIONS: None. FINDINGS: LUNGS AND PLEURA: In the posterior right costophrenic sulcus, a bandlike scar is present o n axial image 77, 4.3 x 1.6 cm in size. This is similar compared to CT chest 09/03/2017. This is sma ller than on 06/05/2017 where it measured about 6 x 3.3 cm in size. Remainder of the lungs are well inflated and clear. No pleural effusion. No pneumothorax. Airways are patent. HILAR AND MEDIASTINAL STRUCTURES: No identified masses or abnormal nodes. HEART AND VASCULAR STRUCTURES: No aneurysm or dissection. No central pulmonary emboli. No pericardi al effusion. Aberrant right subclavian artery, an anatomic variant. HARDWARE: Right-sided permanent central line tip superior vena cava. UPPER ABDOMEN: Gastric sleeve procedure, with surgical clips along the greater curvature of the stoma ch. THYROID AND OTHER SOFT TISSUES: No masses. No adenopathy. BONES: Since the prior CT exam 08/24/2017, patient has developed subacute 25% upper endplate compressio n deformities at T5 and T6 with vertebral body sclerosis along the upper endplates. OTHER: No other significant finding. IMPRESSION: Stable bandlike scarring in the right posterior lower lobe. Osteoporotic T5 and T6 wedge compression deformities, subacute. TECHNICAL DOCUMENTATION: JOB ID: [id number] Quality ID # 436: Final reports with documentation of one or more dose reduction techniques (e.g., Au tomated exposure control, adjustment of the mA and/or kV according to patient size, use of iterative reconstruction technique) 2010 [employer]- All Rights Reserved Reading location - IP/workstation name: [facility]
== END ==
LOC: RAD 08:56
PROVIDERS: ATTEND Internal Medicine
DX: C34.11 Malignant neoplasm of upper lobe, right bronchus or lung (principal)
CPT/HCPCS: 71260; 82565

== ENCOUNTER → 2018-01-30 | Outpatient (CLI) | payer OTHER ==
--- NOTE | 2018-01-30 11:18 | WOMENS IMAGING REPORT ---
EXAM DESCRIPTION: BONE DENSITY HIP/SPINE COMPLETED DATE/TIME: 01/30/2018 11:02 am REASON FOR STUDY: OSTEOPOROSIS M81.0 AGE-RELATED OSTEOPOROSIS W/O CURRENT PATHOLOGICAL FRAC COMPARISON: 2017 TECHNIQUE: Dual-Energy X-ray Absorptiometry (DEXA) of the AP Spine and Hip. LIMITATIONS: None. FINDINGS: LUMBAR SPINE: The bone mineral density (BMD) measured from L1-L4 in the AP projection correlates with a T-score of -0.3, which is normal as defined by the World Health Organization. This is stable compared to 2017 HIP: The bone mineral density (BMD) measured in the left femoral neck at the hip correlates with a T-score of -0.4, which is within normal limits as defined by the World Health Organization. However, this d oes represent a 5% decline in bone density compared to 2017 IMPRESSION: 1. LUMBAR SPINE: Normal 2. HIP: Normal COMMENT: The World Health Organization defines low BMD as follows: T-score: Normal: Greater than -1.0 Osteopenia: Between -1.0 and -2.5 Osteoporosis: Less than -2.5 without fractures Established osteoporosis: Less than -2.5 with fractures In general, you may wish to consider: Diagnosis Treatment Follow-up DEXA Normal BMD Prevention 2-3 years Osteopenia Prevention/Therapy 1-2 years Osteoporosis Therapy Yearly TECHNICAL DOCUMENTATION: JOB ID: [id number] [employer]- All Rights Reserved Reading location - IP/workstation name: [email or web address]
== END ==
LOC: WI 01-28 09:56
PROVIDERS: ATTEND Internal Medicine
DX: M81.0 Age-related osteoporosis without current pathological fracture (principal)
CPT/HCPCS: 77080

== ENCOUNTER → 2018-02-12 | Outpatient (CLI) | payer OTHER ==
--- NOTE | 2018-02-12 11:45 | WOMENS IMAGING REPORT ---
EXAM DESCRIPTION: BILAT SCREENING MAMMO W/CAD COMPLETED DATE/TIME: 02/12/2018 10:02 am REASON FOR STUDY: bILATERAL SCREENING MAMMO /Z12.31 Z12.31 ENCNTR SCREEN MAMMOGRAM FOR MALIGNANT NE OPLASM OF CECELIA COMPARISON: None. TECHNIQUE: Standard craniocaudal and mediolateral oblique views of each breast recorded using Recroupa l acquisition. LIMITATIONS: None. FINDINGS: Findings present which are benign by mammographic criteria. No suspicious masses, calcifi cations or architectural distortion. Read with the assistance of CAD. .[facility] - R2 Cenova Version 1.3 .[facility] Imaging - R2 Cenova Version 1.3 .[facility] Imaging - R2 Cenova Version 2.4 .[place] - R2 Cenova Version 2.4 .[facility] - R2 [employer]or Version 9.2 Benign mammographic findings may include one or more of the following: Smooth masses, popcorn/rim/co arse calcifications, asymmetries, post-procedure changes, and lesions with long-standing stability. IMPRESSION: BENIGN MAMMOGRAPHIC FINDINGS. BIRADS 2 BREAST DENSITY: a. The breasts are almost entirely fatty. BIRAD: 2 BENIGN FINDING(S) RECOMMENDATION: ROUTINE SCREENING in 1 year COMMENT: The patient has been notified of the results by letter per SA requirements. Additional no tification policies are in place for contacting patient with suspicious or incomplete findings. Quality ID #225: The [employer] recommends an annual screening mammogram for women aged 40 years or over. This facility utilizes a reminder system to ensure that all patients receive reminder letters, and/or direct phone calls for appointments. This includes reminders for routine scr eening mammograms, diagnostic mammograms, or other Breast Imaging Interventions when appropriate. Th is patient will be placed in the appropriate reminder system. The [employer] (ACR) has developed recommendations for screening MRI of the breast s in certain patient populations, to be used in conjunction with mammography. Breast MRI surveillanc e may be appropriate for women with more than 20% lifetime risk of developing breast cancer as deter mined by genetic testing, significant family history of the disease, or history of mantle radiation f or Hodgkins Disease. ACR Practice Guidelines 2008. TECHNICAL DOCUMENTATION: FINDING NUMBER: (1) ASSESSMENT: (1) JOB ID: [id number] [employer]- All Rights Reserved Reading location - IP/workstation name: [email or web address]
--- NOTE | 2018-02-12 12:12 | RADIOLOGY REPORT (SQ) ---
EXAM DESCRIPTION: HAND BILATERAL 3 VIEWS COMPLETED DATE/TIME: 02/12/2018 10:35 am REASON FOR STUDY: PAIN IN BOTH HANDS Z12.31 ENCNTR SCREEN MAMMOGRAM FOR MALIGNANT NEOPLASM OF CECELIA COMPARISON: None. EXAM PARAMETERS: NUMBER OF VIEWS: Three views. TECHNIQUE: AP, lateral and oblique radiographic images acquired of the right and left hand. LIMITATIONS: None. FINDINGS: MINERALIZATION: Normal. BONES: No acute fracture or dislocation. No worrisome bone lesions. JOINTS: Characteristic joint space narrowing with bony spurring at the 1st carpometacarpal joints, 2n d PIP and DIP joints, 3rd finger PIP and DIP joints from osteoarthritis. On the left side, an old av ulsion fragment off the dorsal base left 2nd finger PIP joint is present SOFT TISSUES: No soft tissue swelling. No foreign body. OTHER: No other significant finding. IMPRESSION: Osteoarthritis in characteristic locations both hands TECHNICAL DOCUMENTATION: JOB ID: [id number] [employer]- All Rights Reserved Reading location - IP/workstation name: [email or web address]
== END ==
LOC: WI 09:27
PROVIDERS: ATTEND Family Medicine
DX: Z12.31 Encounter for screening mammogram for malignant neoplasm of breast (principal); M79.641 Pain in right hand; M19.042 Primary osteoarthritis, left hand; M19.041 Primary osteoarthritis, right hand
CPT/HCPCS: 77067

== ENCOUNTER → 2018-03-12 | Outpatient (CLI) | payer OTHER ==
[2018-03-12 09:08] LABS: ABSOLUTE BASOPHILS # (AUTO) 0.1 10^3/uL (0.0-0.2); ABSOLUTE EOSINOPHILS # (AUTO) 0.1 10^3/uL (0.0-0.6); ABSOLUTE LYMPHOCYTES (AUTO) 0.7 10^3/uL (0.5-4.7); ABSOLUTE MONOCYTES (AUTO) 0.3 10^3/uL (0.1-1.4); ABSOLUTE NEUT (AUTO) 2.8 10^3/uL (1.7-8.2); BASOPHILS % (AUTO) 1.3 % (0-2); HEMATOCRIT 40.1 % (36.0-47.0); HEMOGLOBIN 13.6 g/dL (12.0-15.5); LYMPHOCYTES % (AUTO) 18.2 % (13-45); MEAN CORPUSCULAR HEMOGLOBIN 33.4 pg (27.0-33.4); MEAN CORPUSCULAR HGB CONC 33.9 g/dL (32.0-36.0); MEAN CORPUSCULAR VOLUME 99 fl (80-97); MONOCYTES % (AUTO) 7.4 % (3-13); PLATELET COUNT 192 10^3/uL (150-450); RED BLOOD COUNT 4.07 10^6/uL (3.72-5.28); RED CELL DISTRIBUTION WIDTH 13.9 % (11.5-14.0); SEGMENTED NEUTROPHILS % (AUTO) 70.1 % (42-78); TOTAL CELLS COUNTED % (AUTO) 100 %
[2018-03-12 09:32] LABS: ANION GAP 5 (5-19); BLOOD UREA NITROGEN 27 mg/dL (7-20); CALCIUM 9.1 mg/dL (8.4-10.2); CARBON DIOXIDE 27 mmol/L (22-30); CHLORIDE 107 mmol/L (98-107); CHOLESTEROL 188.24 mg/dL (0-200); GLUCOSE 84 mg/dL (75-110); POTASSIUM 4.8 mmol/L (3.6-5.0); TRIGLYCERIDES 167 mg/dL (<150)
[2018-03-12 09:42] LABS: DIRECT LDL 96 mg/dL (<100)
[2018-03-12 09:49] LABS: VLDL CHOLESTEROL 33.4 mg/dL (10-31)
--- NOTE | 2018-03-12 10:49 | RADIOLOGY REPORT (SQ) ---
EXAM DESCRIPTION: CT CHEST WITH COMPLETED DATE/TIME: 03/12/2018 9:38 am REASON FOR STUDY: LUNG CA (C34.31) C34.31 MALIGNANT NEOPLASM OF LOWER LOBE, RIGHT BRONCHUS OR L E11 .8 TYPE 2 DIABETES MELLITUS WITH UNSPECIFIED COMPLICATION I10 ESSENTIAL (PRIMARY) HYPERTENSION COMPARISON: 12/07/2017 TECHNIQUE: CT scan of the chest performed using helical scanning technique with dynamic intravenous contrast injection. Images reviewed with lung, soft tissue and bone windows. Reconstructed coronal and sagittal MPR and MIP images reviewed. All images stored on PACS. All CT scanners at this facility use dose modulation, iterative reconstruction, and/or weight based d osing when appropriate to reduce radiation dose to as low as reasonably achievable (ALARA). [facility]: Dose Right [facility]: CareDose [facility]: Dose Right [facility]: Teradose 4D [facility]: [employer] CONTRAST TYPE AND DOSE: contrast/concentration: Isovue 350.00 mg/ml; Total Contrast Delivered: 80.0 ml; Total Saline Delivered: 42.2 ml RENAL FUNCTION: Creatinine 0.8 RADIATION DOSE: CT Rad equipment meets quality standard of care and radiation dose reduction techniq ues were employed. CTDIvol: 6.9 mGy. DLP: 235 mGy-cm. . LIMITATIONS: None. FINDINGS: LUNGS AND PLEURA: Stable bandlike scarring in the right lower lobe. No developing nodules or infiltrate. No effusions. HILAR AND MEDIASTINAL STRUCTURES: No identified masses or abnormal nodes. HEART AND VASCULAR STRUCTURES: No aneurysm or dissection. No central pulmonary emboli. No pericardi al effusion. HARDWARE: None in the chest. UPPER ABDOMEN: No significant findings. Limited exam. THYROID AND OTHER SOFT TISSUES: No masses. No adenopathy. BONES: Chronic compression fractures T5 and T6. OTHER: Right-sided port with tip in the SVC. IMPRESSION: Stable chest. TECHNICAL DOCUMENTATION: JOB ID: [id number] Quality ID # 436: Final reports with documentation of one or more dose reduction techniques (e.g., Au tomated exposure control, adjustment of the mA and/or kV according to patient size, use of iterative reconstruction technique) 2010 [employer]- All Rights Reserved Reading location - IP/workstation name: [facility]
[2018-03-13 11:45] LABS: CREATININE URINE 114.6 mg/dL (Not Estab.); MICROALBUMIN URINE 10.2 ug/mL (Not Estab.)
== END ==
LOC: RAD 08:45
PROVIDERS: ATTEND Internal Medicine
DX: C34.31 Malignant neoplasm of lower lobe, right bronchus or lung (principal); E11.8 Type 2 diabetes mellitus with unspecified complications; I10 Essential (primary) hypertension; J06.9 Acute upper respiratory infection, unspecified
CPT/HCPCS: 36415; 71260; 80048; 80061; 82043; 82565; 82570; 83036; 84443; 85025

== ENCOUNTER → 2018-06-14 | Outpatient (CLI) | payer OTHER ==
--- NOTE | 2018-06-14 10:33 | RADIOLOGY REPORT (SQ) ---
EXAM DESCRIPTION: CT CHEST WITH COMPLETED DATE/TIME: 06/14/2018 9:45 am REASON FOR STUDY: C34.31 MALIGNANT NEOPLASM OF LOWER LOBE, RIGHT BRONCHUS OR LUNG C34.31 MALIGNANT NEOPLASM OF LOWER LOBE, RIGHT BRONCHUS OR L COMPARISON: 03/12/2018. TECHNIQUE: CT scan of the chest performed using helical scanning technique with dynamic intravenous contrast injection. Images reviewed with lung, soft tissue and bone windows. Reconstructed coronal and sagittal MPR and MIP images reviewed. All images stored on PACS. All CT scanners at this facility use dose modulation, iterative reconstruction, and/or weight based d osing when appropriate to reduce radiation dose to as low as reasonably achievable (ALARA). [facility]: Dose Right [facility]: CareDose [facility]: Dose Right [facility]: Teradose 4D [facility]: [employer] CONTRAST TYPE AND DOSE: contrast/concentration: Isovue 350.00 mg/ml; Total Contrast Delivered: 80.0 ml; Total Saline Delivered: 55.0 ml RENAL FUNCTION: Creatinine 0.8 RADIATION DOSE: CT Rad equipment meets quality standard of care and radiation dose reduction techniq ues were employed. CTDIvol: 6.8 mGy. DLP: 241 mGy-cm. . LIMITATIONS: None. FINDINGS: LUNGS AND PLEURA: Bandlike scarring in the right lower lobe which is not significantly christophe nged. 2 mm node middle lobe nodule stable since 11/09/2016. No developing nodules or infiltrate. No effusions. HILAR AND MEDIASTINAL STRUCTURES: No identified masses or abnormal nodes. HEART AND VASCULAR STRUCTURES: No aneurysm or dissection. No central pulmonary emboli. No pericardi al effusion. HARDWARE: None in the chest. UPPER ABDOMEN: Gastric bypass. Limited exam. THYROID AND OTHER SOFT TISSUES: No masses. No adenopathy. BONES: Chronic compression fractures T5 and T6. OTHER: No other significant finding. IMPRESSION: Stable exam. No developing nodules or infiltrate. TECHNICAL DOCUMENTATION: JOB ID: [id number] Quality ID # 436: Final reports with documentation of one or more dose reduction techniques (e.g., Au tomated exposure control, adjustment of the mA and/or kV according to patient size, use of iterative reconstruction technique) 2010 [employer]- All Rights Reserved Reading location - IP/workstation name: [facility]
== END ==
LOC: RAD 10:09
PROVIDERS: ATTEND Internal Medicine
DX: C34.31 Malignant neoplasm of lower lobe, right bronchus or lung (principal)
CPT/HCPCS: 71260; 82565

== ENCOUNTER → 2018-09-30 | Outpatient (CLI) | payer OTHER ==
--- NOTE | 2018-09-30 17:34 | RADIOLOGY REPORT (SQ) ---
EXAM DESCRIPTION: CHEST PA/LATERAL COMPLETED DATE/TIME: 09/30/2018 4:50 pm REASON FOR STUDY: COUGH COMPARISON: 10/04/2017. EXAM PARAMETERS: NUMBER OF VIEWS: two views TECHNIQUE: Digital Frontal and Lateral radiographic views of the chest acquired. RADIATION DOSE: NA LIMITATIONS: none FINDINGS: LUNGS AND PLEURA: Streaky density in the right lung base, appearance unchanged from the pr ior study. No masses or pneumothorax. No pleural effusion. MEDIASTINUM AND HILAR STRUCTURES: No masses or contour abnormalities. HEART AND VASCULAR STRUCTURES: Heart normal size. No evidence for failure. BONES: No acute findings. HARDWARE: Vascular port. OTHER: No other significant finding. IMPRESSION: STREAKY DENSITY IN THE RIGHT LUNG BASE WHICH MAY REPRESENT AN AREA OF SCARRING THERE WAS A SIMILAR APPEARANCE ON THE PRIOR STUDY LAST YEAR. CANNOT ENTIRELY EXCLUDE SUPERIMPOSED MILD PNE UMONIA. TECHNICAL DOCUMENTATION: JOB ID: [id number] [employer]- All Rights Reserved Reading location - IP/workstation name: [email or web address]
== END ==
LOC: OD 15:27
PROVIDERS: ATTEND Family Medicine
DX: J98.4 Other disorders of lung (principal); R05 Cough
CPT/HCPCS: 71046

== ENCOUNTER → 2018-09-30 | Outpatient (CLI) | payer OTHER ==
--- NOTE | 2018-09-30 17:43 | RADIOLOGY REPORT (SQ) ---
EXAM DESCRIPTION: T SPINE AP/LAT COMPLETED DATE/TIME: 09/30/2018 4:50 pm REASON FOR STUDY: PAIN IN THORACIC SPINE M54.6 PAIN IN THORACIC SPINE M25.512 PAIN IN LEFT SHOULDE R COMPARISON: X-ray thoracic spine dated 10/04/2017. CT chest dated 06/14/2018. NUMBER OF VIEWS: Two views. TECHNIQUE: AP and lateral radiographic images acquired of the thoracic spine. LIMITATIONS: None. FINDINGS: MINERALIZATION: Normal. ALIGNMENT: Normal. No scoliosis. VERTEBRAE: Wedge deformities of the T5 and T6 vertebral bodies are unchanged. Remainder of the thora cic vertebrae appear intact. DISCS: Mild multilevel disc space narrowing with osteophytes. HARDWARE: None in the spine. MEDIASTINUM AND SOFT TISSUES: Normal heart size and aortic contour. No soft tissue abnormality. VISUALIZED LUNG RUDD: Clear. OTHER: No other significant finding. IMPRESSION: MULTILEVEL DEGENERATIVE DISC DISEASE. OLD WEDGE DEFORMITIES OF THE T5 AND T6 VERTEBRAE. NO ACUTE FINDINGS. TECHNICAL DOCUMENTATION: JOB ID: [id number] [employer]- All Rights Reserved Reading location - IP/workstation name: [email or web address]
--- NOTE | 2018-09-30 17:44 | RADIOLOGY REPORT (SQ) ---
EXAM DESCRIPTION: SHOULDER LEFT 2 OR MORE VIEWS COMPLETED DATE/TIME: 09/30/2018 4:50 pm REASON FOR STUDY: PAIN IN LEFT SHOULDER M54.6 PAIN IN THORACIC SPINE M25.512 PAIN IN LEFT SHOULDER COMPARISON: None. NUMBER OF VIEWS: Three view. TECHNIQUE: Internal rotation, external rotation, and Y view images acquired of the left shoulder. LIMITATIONS: None. FINDINGS: MINERALIZATION: Normal. BONES: No acute fracture or dislocation. No worrisome bone lesions. No significant osteophytes. GLENOHUMERAL JOINT: No significant findings. ACROMIOCLAVICULAR JOINT: No large osteophytes. SOFT TISSUES: No calcifications. VISUALIZED RIBS, SPINE, AND LUNG: No other significant finding. OTHER: No other significant finding. IMPRESSION: NEGATIVE STUDY OF THE LEFT SHOULDER. NO EXPLANATION FOR PAIN. TECHNICAL DOCUMENTATION: JOB ID: [id number] [employer]- All Rights Reserved Reading location - IP/workstation name: [email or web address]
== END ==
LOC: OD 15:29
PROVIDERS: ATTEND Physician Assistant Medical
DX: M51.34 Other intervertebral disc degeneration, thoracic region (principal); M25.512 Pain in left shoulder
CPT/HCPCS: 72070

== ENCOUNTER → 2018-10-07 | Outpatient (CLI) | payer OTHER ==
--- NOTE | 2018-10-07 14:58 | RADIOLOGY REPORT (SQ) ---
EXAM DESCRIPTION: C SP 3 VWS OR LESS COMPLETED DATE/TIME: 10/07/2018 2:13 pm REASON FOR STUDY: CERVICALGIA M54.2 CERVICALGIA COMPARISON: None. NUMBER OF VIEWS: Two views TECHNIQUE: AP, lateral radiographic images acquired of the cervical spine. LIMITATIONS: None. FINDINGS: MINERALIZATION: Normal. ALIGNMENT: Anatomic. VERTEBRAE: Vertebral bodies of normal height. DISCS: Mild disc space loss of height at C4-5 and C5-6 with anterior osteophyte formation HARDWARE: Right-sided permanent central line tip in the superior vena cava SOFT TISSUES: No masses or calcifications. Lung apices clear. OTHER: No other significant finding. IMPRESSION: Disc space loss of height at C4-5 and C5-6 with anterior osteophyte formation TECHNICAL DOCUMENTATION: JOB ID: [id number]- All Rights Reserved Reading location - IP/workstation name: [email or web address]
== END ==
LOC: OD 13:33
PROVIDERS: ATTEND Physician Assistant Medical
DX: M54.2 Cervicalgia (principal)
CPT/HCPCS: 72040

== ENCOUNTER → 2018-10-21 | Outpatient (CLI) | payer OTHER ==
--- NOTE | 2018-10-21 09:01 | RADIOLOGY REPORT (SQ) ---
EXAM DESCRIPTION: CT CHEST WITH COMPLETED DATE/TIME: 10/21/2018 8:39 am REASON FOR STUDY: LUNG CA (C34.31) C34.31 MALIGNANT NEOPLASM OF LOWER LOBE, RIGHT BRONCHUS OR L COMPARISON: 06/14/2018 TECHNIQUE: CT scan of the chest performed using helical scanning technique with dynamic intravenous contrast injection. Images reviewed with lung, soft tissue and bone windows. Reconstructed coronal and sagittal MPR and MIP images reviewed. All images stored on PACS. All CT scanners at this facility use dose modulation, iterative reconstruction, and/or weight based d osing when appropriate to reduce radiation dose to as low as reasonably achievable (ALARA). [facility]: Dose Right [facility]: CareDose [facility]: Dose Right [facility]: Teradose 4D [facility]: [employer] CONTRAST TYPE AND DOSE: contrast/concentration: Isovue 350.00 mg/ml; Total Contrast Delivered: 80.0 ml; Total Saline Delivered: 55.0 ml RENAL FUNCTION: GFR > 60. RADIATION DOSE: CT Rad equipment meets quality standard of care and radiation dose reduction techniq ues were employed. CTDIvol: 7.3 mGy. DLP: 271 mGy-cm. . LIMITATIONS: None. FINDINGS: LUNGS AND PLEURA: Stable bandlike scarring in the right lower lobe. No developing nodules or infiltrate. No effusions. HILAR AND MEDIASTINAL STRUCTURES: No identified masses or abnormal nodes. HEART AND VASCULAR STRUCTURES: No aneurysm or dissection. No central pulmonary emboli. No pericardi al effusion. HARDWARE: None in the chest. UPPER ABDOMEN: No significant findings. Limited exam. THYROID AND OTHER SOFT TISSUES: No masses. No adenopathy. BONES: Chronic compression fractures T6 and T7. OTHER: No other significant finding. IMPRESSION: Stable chest. TECHNICAL DOCUMENTATION: JOB ID: [id number] Quality ID # 436: Final reports with documentation of one or more dose reduction techniques (e.g., Au tomated exposure control, adjustment of the mA and/or kV according to patient size, use of iterative reconstruction technique) 2010 [employer]- All Rights Reserved Reading location - IP/workstation name: [facility]-
== END ==
LOC: RAD 08:11
PROVIDERS: ATTEND Physician Assistant Medical
DX: C34.31 Malignant neoplasm of lower lobe, right bronchus or lung (principal)
CPT/HCPCS: 71260; 82565

== ENCOUNTER → 2019-02-25 | Outpatient (CLI) | payer OTHER ==
--- NOTE | 2019-02-25 10:28 | RADIOLOGY REPORT (SQ) ---
EXAM DESCRIPTION: CT CHEST WITH COMPLETED DATE/TIME: 02/25/2019 10:07 am REASON FOR STUDY: C34.31 MALIGNANT NEOPLASM OF LOWER LOBE, RIGHT BRONCHUS OR LUNG C34.31 MALIGNANT NEOPLASM OF LOWER LOBE, RIGHT BRONCHUS OR L COMPARISON: 10/21/2018 TECHNIQUE: CT scan of the chest performed using helical scanning technique with dynamic intravenous contrast injection. Images reviewed with lung, soft tissue and bone windows. Reconstructed coronal and sagittal MPR and MIP images reviewed. All images stored on PACS. All CT scanners at this facility use dose modulation, iterative reconstruction, and/or weight based d osing when appropriate to reduce radiation dose to as low as reasonably achievable (ALARA). [facility]: Dose Right [facility]: CareDose [facility]: Dose Right [facility]: Teradose 4D [facility]: [employer] CONTRAST TYPE AND DOSE: contrast/concentration: Isovue 350.00 mg/ml; Total Contrast Delivered: 80.0 ml; Total Saline Delivered: 55.0 ml RENAL FUNCTION: Creatinine 1.0 RADIATION DOSE: CT Rad equipment meets quality standard of care and radiation dose reduction techniq ues were employed. CTDIvol: 6.6 mGy. DLP: 262 mGy-cm. . LIMITATIONS: None. FINDINGS: LUNGS AND PLEURA: There is bandlike scarring or atelectasis in the right base stable from prior study. No consolidation, effusions or pulmonary nodules. HILAR AND MEDIASTINAL STRUCTURES: No focal masses. Fullness along the right aspect of the esophagus approximately 1 cm below the ashley is again noted and unchanged to improved when compared to prior s tudy. HEART AND VASCULAR STRUCTURES: No aneurysm or dissection. Aberrant origin of the right subclavian ar theo is again noted. HARDWARE: Hautqq-L-Evyh is in place. UPPER ABDOMEN: No significant findings. Limited exam. THYROID AND OTHER SOFT TISSUES: No masses. No adenopathy. BONES: Stable in appearance with mild compression deformities of T6 and T7. OTHER: No other significant finding. IMPRESSION: Stable CT of the chest with bandlike scarring in the right base. No acute findings. No evidence of metastatic disease. TECHNICAL DOCUMENTATION: JOB ID: [id number] Quality ID # 436: Final reports with documentation of one or more dose reduction techniques (e.g., Au tomated exposure control, adjustment of the mA and/or kV according to patient size, use of iterative reconstruction technique) 2010 [employer]- All Rights Reserved Reading location - IP/workstation name: [facility]
== END ==
LOC: RAD 09:23
PROVIDERS: ATTEND Internal Medicine
DX: C34.31 Malignant neoplasm of lower lobe, right bronchus or lung (principal)
CPT/HCPCS: 71260; 82565

== ENCOUNTER → 2019-05-26 | Outpatient (CLI) | payer OTHER ==
[2019-05-26 07:24] LABS: ABSOLUTE EOSINOPHILS # (AUTO) 0.2 10^3/uL (0.0-0.6); ABSOLUTE LYMPHOCYTES (AUTO) 0.7 10^3/uL (0.5-4.7); ABSOLUTE MONOCYTES (AUTO) 0.5 10^3/uL (0.1-1.4); ABSOLUTE NEUT (AUTO) 3.9 10^3/uL (1.7-8.2); BASOPHILS % (AUTO) 0.9 % (0-2); EOSINOPHILS % (AUTO) 3.3 % (0-6); HEMATOCRIT 41.5 % (36.0-47.0); HEMOGLOBIN 13.9 g/dL (12.0-15.5); LYMPHOCYTES % (AUTO) 13.2 % (13-45); MEAN CORPUSCULAR HEMOGLOBIN 32.7 pg (27.0-33.4); MEAN CORPUSCULAR HGB CONC 33.5 g/dL (32.0-36.0); MEAN CORPUSCULAR VOLUME 98 fl (80-97); MONOCYTES % (AUTO) 9.5 % (3-13); PLATELET COUNT 211 10^3/uL (150-450); RED BLOOD COUNT 4.25 10^6/uL (3.72-5.28); RED CELL DISTRIBUTION WIDTH 14.1 % (11.5-14.0); SEGMENTED NEUTROPHILS % (AUTO) 73.1 % (42-78); TOTAL CELLS COUNTED % (AUTO) 100 %; WHITE BLOOD COUNT 5.3 10^3/uL (4.0-10.5)
[2019-05-26 10:27] LABS: ALKALINE PHOSPHATASE 77 U/L (38-126); ANION GAP 8 (5-19); ASPARTATE AMINO TRANSFERASE 22 U/L (14-36); BILIRUBIN,DIRECT 0.3 mg/dL (0.0-0.4); BILIRUBIN,TOTAL 0.4 mg/dL (0.2-1.3); BLOOD UREA NITROGEN 27 mg/dL (7-20); CALCIUM 9.1 mg/dL (8.4-10.2); CARBON DIOXIDE 28 mmol/L (22-30); CHLORIDE 105 mmol/L (98-107); CHOLESTEROL 229.28 mg/dL (0-200); GLUCOSE 100 mg/dL (75-110); IRON(TIBC) 103.2 ug/dL (37-170); POTASSIUM 4.5 mmol/L (3.6-5.0); TOTAL PROTEIN 7.1 g/dL (6.3-8.2); TRIGLYCERIDES 121 mg/dL (<150)
[2019-05-26 10:38] LABS: DIRECT LDL 158 mg/dL (<100)
== END ==
LOC: LAB 07:04
PROVIDERS: ATTEND Physician Assistant Medical
DX: E11.9 Type 2 diabetes mellitus without complications (principal)
CPT/HCPCS: 36415; 80053; 80061; 82607; 82728; 82746; 83540; 83550; 83970; 84425; 85025

== ENCOUNTER → 2019-12-12 | Outpatient (CLI) | payer BC, OTHER ==
--- NOTE | 2019-12-12 09:57 | RADIOLOGY REPORT (SQ) ---
EXAM DESCRIPTION: CT CHEST WITH IMAGES COMPLETED DATE/TIME: 12/12/2019 9:37 am REASON FOR STUDY: C34.31 MALIGNANT NEOPLASM OF LOWER LOBE, RIGHT BRONCHUS OR LUNG C34.31 MALIGNANT NEOPLASM OF LOWER LOBE, RIGHT BRONCHUS OR L COMPARISON: 02/25/2019 TECHNIQUE: CT scan of the chest performed using helical scanning technique with dynamic intravenous contrast injection. Images reviewed with lung, soft tissue and bone windows. Reconstructed coronal and sagittal MPR and MIP images reviewed. All images stored on PACS. All CT scanners at this facility use dose modulation, iterative reconstruction, and/or weight based d osing when appropriate to reduce radiation dose to as low as reasonably achievable (ALARA). [facility]: Dose Right [facility]: CareDose [facility]: Dose Right [facility]: Teradose 4D [facility]: [employer] CONTRAST TYPE AND DOSE: 79 cc Omn[employer]aque 350 RENAL FUNCTION: Creatinine 0.9 RADIATION DOSE: CT Rad equipment meets quality standard of care and radiation dose reduction techniq ues were employed. CTDIvol: 9.9 mGy. DLP: 369 mGy-cm. . LIMITATIONS: None. FINDINGS: LUNGS AND PLEURA: Stable appearance of the right lower lobe bandlike consolidation, likely scarring. No superimposed airspace disease. No pleural effusion or pneumothorax. No new discrete suspicious nodules or masses. HILAR AND MEDIASTINAL STRUCTURES: No identified masses or abnormal nodes. Stable mid distal esophage al wall thickening HEART AND VASCULAR STRUCTURES: Normal heart size. No pericardial effusion. Three-vessel coronary at herosclerosis. Incidentally noted aberrant right subclavian artery. HARDWARE: Right-sided chest port with catheter tip at SVC. UPPER ABDOMEN: No acute findings. Evidence of prior gastric bypass. THYROID AND OTHER SOFT TISSUES: No masses. No adenopathy. BONES: No acute bony abnormality. No suspicious osseous lesions. Unchanged mild midthoracic T6-7 co mpression deformities. OTHER: No other significant finding. IMPRESSION: 1. Stable chest CT with bandlike scarring at the right lung base. No evidence of new i ntrathoracic metastatic disease. 2. Stable mid distal esophageal wall thickening. 3. No other evidence of acute intrathoracic process. Three-vessel coronary atherosclerosis. TECHNICAL DOCUMENTATION: JOB ID: [id number] Quality ID # 436: Final reports with documentation of one or more dose reduction techniques (e.g., Au tomated exposure control, adjustment of the mA and/or kV according to patient size, use of iterative reconstruction technique) 2010 [employer]- All Rights Reserved Reading location - IP/workstation name: [email or web address]
== END ==
LOC: RAD 08:59
PROVIDERS: ATTEND Internal Medicine
DX: C34.31 Malignant neoplasm of lower lobe, right bronchus or lung (principal); I25.10 Atherosclerotic heart disease of native coronary artery without angina pectoris
CPT/HCPCS: 71260; 82565

== ENCOUNTER → 2020-06-08 | Outpatient (CLI) | payer BC ==
--- NOTE | 2020-06-08 12:26 | RADIOLOGY REPORT (SQ) ---
EXAM DESCRIPTION: CT CHEST WITHOUT IMAGES COMPLETED DATE/TIME: 06/08/2020 9:46 am REASON FOR STUDY: LUNG CA C34.31 MALIGNANT NEOPLASM OF LOWER LOBE, RIGHT BRONCHUS OR L COMPARISON: 12/12/2019 and 02/25/2019. TECHNIQUE: CT scan performed of the chest without intravenous contrast. Images reviewed with lung, soft tissue and bone windows. Reconstructed coronal and sagittal MPR images reviewed. All images st ored on PACS. All CT scanners at this facility use dose modulation, iterative reconstruction, and/or weight based d osing when appropriate to reduce radiation dose to as low as reasonably achievable (ALARA). [facility]: Dose Right [facility]: CareDose [facility]: Dose Right [facility]: Teradose 4D [facility]: [employer] RADIATION DOSE: CT Rad equipment meets quality standard of care and radiation dose reduction techniq ues were employed. CTDIvol: 12.8 mGy. DLP: 500 mGy-cm. mGy. LIMITATIONS: No technical limitations. FINDINGS: LUNGS AND PLEURA: Stable linear scarring in the right lung base. No masses, infiltrates, or pneumothorax. No pleural effusions or pleural calcifications. HILAR AND MEDIASTINAL STRUCTURES: No identified masses or abnormal nodes. No obvious aneurysm. HEART AND VASCULAR STRUCTURES: No aneurysm. No pericardial effusion. UPPER ABDOMEN: No significant findings. Previous gastric surgery. Limited exam. THYROID AND OTHER SOFT TISSUES: No masses. No adenopathy. BONES: No significant finding. HARDWARE: Vascular port. OTHER: No other significant findings. IMPRESSION: STABLE NONCONTRAST CT OF THE CHEST. CHRONIC LINEAR SCARRING IN THE RIGHT LUNG BASE. NO EVIDENCE OF RESIDUAL OR RECURRENT DISEASE OR METASTASES IN THE CHEST. TECHNICAL DOCUMENTATION: JOB ID: [id number] Quality ID # [id number]: Final reports with documentation of one or more dose reduction techniques (e.g., Au tomated exposure control, adjustment of the mA and/or kV according to patient size, use of iterative reconstruction technique) 2010 [employer]- All Rights Reserved Reading location - IP/workstation name: [email or web address]
== END ==
LOC: RAD 09:36
PROVIDERS: ATTEND Physician Assistant Medical
DX: C34.31 Malignant neoplasm of lower lobe, right bronchus or lung (principal)
CPT/HCPCS: 71250